=== PATIENT | female | born 1985 | race Caucasian/White ===

== ENCOUNTER 2016-05-22 04:09 | Inpatient (IN) | payer BC ==
--- NOTE | 2016-05-22 05:53 | PCM.LDHP ---
L&D History of Present Illness - General Date of Service: 05/22/16 Admit Problem/Dx: Admission Diagnosis/Problem Admission Diagnosis/Problem Source of Information: Patient History Limitations: Reports: No limitations - History of Present Illness Introduction:: 30 year old here in active labor. - Related Data Allergies/Adverse Reactions: Allergies Allergy/AdvReac Type Severity Reaction Status Date / Time No Known Allergies Allergy Verified 05/22/16 04:51 H&P Review of Systems - Review of Systems: Review Of Systems: See Below General: Reports: no symptoms HEENT: Reports: no symptoms Pulmonary: Reports: No Symptoms Cardiovascular: Reports: no symptoms Gastrointestinal: Reports: No symptoms Genitourinary: Reports: no symptoms Musculoskeletal: Reports: no symptoms Skin: Reports: no symptoms Psychiatric: Reports: no symptoms Neurological: Reports: No Symptoms Hematologic/Lymphatic: Reports: no symptoms Immunologic: Reports: no symptoms L&D Exam - Exam Exam: See Below - Vital Signs Weight: 69.853 kg - OB Specific Contraction Intensity: Mild to Moderate movement: active Heart Rate (FHR) Variability: Moderate (6-25 bmp) Presentation: Vertex - Mahoney Score Mahoney Score Cervix Position: Midposition Mahoney Score Consistency: Medium Mahoney Score Effacement: 51-70% Mahoney Score Dilation: > 5 cm Mahoney Score 's Station: -2 Mahoney Score Total: 8 - Exam General: alert, oriented HEENT: Conjunctiva clear Neck: supple Lungs: Clear to auscultation, Normal respiratory effort Back Exam: normal inspection, full range of motion Extremities: normal inspection Skin: warm, dry, intact Neurological: cranial nerves intact Problem List Initiated/Reviewed/Updated: Yes Assessment/Plan Comment:: 30 year old here in active labor. Routine labor care.
[2016-05-22] MEDS ORDERED: Nalbuphine 20 MG/1 ML Amp IVPUSH PRN (06:26)
[2016-05-22] MEDS ORDERED: Ondansetron 4 MG/2 ML SDV IVPUSH PRN (06:26)
[2016-05-22] MEDS ORDERED: Sodium Chloride 0.9% 10 ML Syringe FLUSH PRN (06:26)
[2016-05-22] MEDS ORDERED: Lidocaine 1% 50 ML MDV INJECT SCH (06:30)
[2016-05-22] MEDS ORDERED: Lactated Ringers 1,000 ML IV SCH (06:30)
[2016-05-22] MEDS ORDERED: Oxytocin/Lactated Ringers 10 UNIT/1,000 ML BAG IV SCH (06:30)
[2016-05-22] MEDS ORDERED: Benzocaine/Menthol 20%-0.5% Spray 56 GM Canister TOP PRN (10:32)
[2016-05-22] MEDS ORDERED: Ibuprofen 600 MG Tab PO PRN (10:32)
[2016-05-22] MEDS ORDERED: Witch Hazel Medicated Pads 100/Jar TOP PRN (10:32)
--- NOTE | 2016-05-23 07:08 | PCM.DCSUM1 ---
Discharge Summary - Hospital Course HPI Initial Comments: Admitted in active labor - Discharge Data Discharge Date: 05/23/16 Discharge Disposition: Home, Self-Care 01 Condition: Good - Patient Summary/Data Hospital Course: Admitted in active labor. . No complications. Discharged home ppd1. - Patient Instructions Diet: Usual Diet as Tolerated Activity: No Strenuous Activities Driving: May Drive Today Showering/Bathing: May Shower Notify Provider of: Fever, Increased Pain, Swelling and Redness, Drainage, Nausea and/or Vomiting - Discharge Plan Referrals: Judith Hoffmann MD [Primary Care Provider] - (6 weeks) - Discharge Summary/Plan Comment DC Time >30 min.: No - General Info Date of Service: 05/23/16 Functional Status: Reports: pain controlled - Review of Systems General: Reports: No Symptoms HEENT: Reports: no symptoms Pulmonary: Reports: no symptoms Cardiovascular: Reports: No Symptoms Gastrointestinal: Reports: No symptoms Genitourinary: Reports: no symptoms Musculoskeletal: Reports: no symptoms Skin: Reports: no symptoms Neurological: Reports: No Symptoms Psychiatric: Reports: no symptoms - Patient Data Vitals - Most Recent: Last Vital Signs Temp 36.9 C 05/23/16 04:43 Pulse 84 05/23/16 04:43 Resp 16 05/23/16 04:43 BP 102/58 L 05/23/16 04:43 Pulse Ox 96 05/23/16 04:43 Weight - Most Recent: 69.853 kg I&O - Last 24 hours: Intake & Output 05/22/16 05/23/16 05/23/16 22:59 06:59 14:59 Intake Total 360 Balance 360 Lab Results - Last 24 hrs: Laboratory Results - last 24 hr 05/22/16 05/22/16 Range/Units 06:38 12:42 WBC 18.68 H (3.98-10.04) K/mm3 RBC 4.57 (3.98-5.22) M/mm3 Hgb 13.5 (11.2-15.7) gm/L Hct 40.1 (34.1-44.9) % MCV 87.7 (79.4-94.8) fl MCH 29.5 (25.6-32.2) pg MCHC 33.7 (32.2-35.5) g/dl RDW Std Deviation 44.8 (36.4-46.3) fL Plt Count 228 (182-369) K/mm3 MPV 9.7 (9.4-12.3) fl Neut % (Auto) 84.0 H (34.0-71.1) % Lymph % (Auto) 8.0 L (19.3-51.7) % [place] % (Auto) 6.9 (4.7-12.5) % Eos % (Auto) 0.3 L (0.7-5.8) Baso % (Auto) 0.2 (0.1-1.2) % Neut # (Auto) 15.70 H (1.56-6.13) K/mm3 Lymph # (Auto) 1.50 (1.18-3.74) K/mm3 [place] # (Auto) 1.28 H (0.24-0.36) K/mm3 Eos # (Auto) 0.05 (0.04-0.36) K/mm3 Baso # (Auto) 0.03 (0.01-0.08) K/mm3 Manual Slide Review Abnormal smear Blood Type O NEGATIVE Gel Antibody Screen Positive Screen 1 ros/5 flds - neg RhIG Candidate? Yes Rhogam Indicated Yes, baby rh pos H Med Orders - Current: Current Medications Benzocaine/Menthol (Dermoplast Pain Relief [place]) 0 gm TOP ASDIRECTED PRN PRN Reason: Perineal Comfort Measure Last Admin: 05/22/16 13:02 Dose: 1 can Ibuprofen (Motrin) 600 mg PO Q6H PRN PRN Reason: Mild pain or fever Witch Anai (Tucks) 1 pad TOP ASDIRECTED PRN PRN Reason: Hemorrhoid pain Last Admin: 05/22/16 13:01 Dose: 1 tub Discontinued Medications Lactated Ringer's (Ringers, Lactated) 1,000 mls @ 100 mls/hr IV ASDIRECTED PITA Oxytocin/Lactated Ringer's (Pitocin In Lr 10 Units/1,000 Ml) 10 unit in 1,000 mls @ 500 mls/hr IV TITRATE PITA Last Infusion: 05/22/16 10:45 Dose: 999 mls/hr Lidocaine HCl (Xylocaine 1%) 50 ml INJECT .ONETIME PITA Nalbuphine HCl (Nubain) 10 mg IVPUSH Q2H PRN PRN Reason: Pain (moderate 4-6) Ondansetron HCl (Zofran) 4 mg IVPUSH Q4H PRN PRN Reason: Nausea/Vomiting Sodium Chloride (Saline Flush) 10 ml FLUSH ASDIRECTED PRN PRN Reason: Keep Vein Open - Exam General: Reports: alert, oriented HEENT: Reports: Pupils equal, Pupils reactive, EOMI, Mucous membr. moist/pink Neck: Reports: supple Lungs: Reports: Clear to auscultation, Normal respiratory effort Cardiovascular: Reports: Regular Rate, Regular Rhythm Abdomen: Reports: bowel sounds present, soft, no tenderness, no distension (Female) Exam: Normal external exam, Normal speculum exam, Normal bimanual exam Back Exam: Reports: normal inspection, full range of motion Extremities: Reports: no edema, normal pulses Skin: Reports: warm, dry, intact Wound/Incisions: Reports: healing well Neurological: Reports: no new focal deficit Psy/Mental Status: Reports: alert, normal affect, normal mood *Q Meaningful Use (DIS) - VTE *Q VTE Criteria *Q: - Stroke *Q Stroke Criteria *Q: - AMI *Q AMI Criteria *Q:
[2016-05-23 13:59] VITALS: BP 104/70
== END 2016-05-23 12:15 | disposition home or self-care (01) | DRG 560 ==
LOC: JD.OB 04:09 → JD.OBCHECK 04:09 → JD.OB 04:20 → OBSVTOIN 09:21 → JD.OB 09:21
PROVIDERS: ADMIT Obstetrics & Gynecology; ATTEND Obstetrics & Gynecology
PROC: 10E0XZZ Delivery of Products of Conception, External Approach (ICD-10-PCS; principal; 2016-05-22)
PROC: 10907ZC Drainage of Amniotic Fluid, Therapeutic from Products of Conception, Via Natural or Artificial Opening (ICD-10-PCS; 2016-05-22)
DX: O70.0 First degree perineal laceration during delivery (principal); Z3A.39 39 weeks gestation of pregnancy; Z37.0 Single live birth
CPT/HCPCS: 36415; 85025; 85461; 86850; 86870; 86900; 86901; A9270-GY; J2590; J2790